=== PATIENT | male | born 1965 | race Caucasian/White ===

== ENCOUNTER 2017-08-03 17:55 | Emergency (ER) | payer OTHER ==
[~2017-08-03] VITALS: Ht 167.6 cm; Wt 78.5 kg
[2017-08-03 18:45] LABS: HEMATOCRIT 46.6 % (38.0-50.0); HEMOGLOBIN 16.2 G/DL (12.5-16.6); MCH 31.5 PG (29.0-34.0); MCHC 34.8 G/DL (30.0-36.0); MCV 90.7 FL (86-99); PLATELET COUNT 242 K/uL (156-360); RBC DIS.WIDTH-SD 43.7 % (39-53); RED BLOOD COUNT 5.14 M/uL (4.00-5.50); WHITE BLOOD COUNT 6.6 K/uL (4.1-10.2)
[2017-08-03 18:59] LABS: CHLORIDE 107 mEq/L (99-109); POTASSIUM 4.2 mEq/L (3.7-5.4); SODIUM 140 mEq/L (136-147)
[2017-08-03 19:01] LABS: GLUCOSE 79 mg/dL (70-99)
[2017-08-03 19:05] LABS: GFR ESTIMATE (CALCULATED) > 59 mL/min/ (58.99-99999)
[2017-08-03 19:06] LABS: UREA NITROGEN (BUN) 29 mg/dL (9-23)
[2017-08-03 19:08] LABS: TROP-I INTERPRETATION NEGATIVE; TROPONIN-I < 0.01 ng/mL (0.0-0.30)
[2017-08-03 20:13] LABS: INTER. NORMALIZED RATIO 1.3
[2017-08-03 20:16] LABS: PTT 35.2 SEC (25-37)
[2017-08-03 22:19] LABS: TROP-I INTERPRETATION NEGATIVE; TROPONIN-I 0.01 ng/mL (0.0-0.30)
[2017-08-03] MEDS ORDERED: ZITHROMAX Z-PA250 MG PO (22:24)
[2017-08-03] MEDS ORDERED: NAPROSYN500 MG PO (22:25)
[2017-08-03 23:07] VITALS: BP 115/70
== END 2017-08-03 22:30 | disposition home or self-care (01) ==
LOC: EME 17:55 → RME 17:55
PROVIDERS: Physician Assistant
DX: R07.9 Chest pain, unspecified (principal); Z86.718 Personal history of other venous thrombosis and embolism; Z79.01 Long term (current) use of anticoagulants
CPT/HCPCS: 71046; 71275; 80048; 84484; 85027; 85610; 85730; 93005; 99281; 99284; J7030